=== PATIENT | female | born 1965 | race Caucasian/White ===

== ENCOUNTER 2016-08-03 13:44 | Emergency (ER) | payer BC ==
[2016-08-03 14:57] VITALS: BP 155/92
[2016-08-03] MEDS ORDERED: IBUPROFEN 800 MG TABLET PO ONE (15:19)
[2016-08-03] MEDS ORDERED: DIPH/PERTUSS(ACELL)/TETANUS VAC/PF 0.5 ML SYR (>=10YO) IM ONE (15:19)
--- NOTE | 2016-08-03 15:20 | ER Document Report ---
ED Medical Screen (RME) - General Chief Complaint: Laceration Stated Complaint: LACERATION TO RIGHT 4TH DIGIT Time seen by provider: 15:19 Mode of Arrival: Ambulatory Information source: Patient Notes: 50-year-old female flap cut her fourth dorsal ring finger over the PIP joint with broken glass in the garbage today at 2:00. Tetanus is not current. It is throbbing. TRAVEL OUTSIDE OF THE [place] IN LAST 30 DAYS: No Physical Exam - Vital signs Vitals: Temp Pulse Resp BP Pulse Ox 98.4 F 88 20 155/92 H 98 08/03/16 14:55 08/03/16 14:55 08/03/16 14:55 08/03/16 14:55 08/03/16 14:55 Course - Vital Signs Vital signs: Temp Pulse Resp BP Pulse Ox 98.4 F 88 20 155/92 H 98 08/03/16 14:55 08/03/16 14:55 08/03/16 14:55 08/03/16 14:55 08/03/16 14:55
[2016-08-03] MEDS ORDERED: BUPIVACAINE HCL 0.5 % INJ/PF 30 ML SDV INJ ONE (19:16)
[2016-08-03] MEDS ORDERED: AMOXICILLIN TR/POT CLAVULANATE 500-125 MG TAB PO ONE (19:17)
[2016-08-03] MEDS ORDERED: LIDOCAINE 1% INJ-PF (10 MG/ML) 30 ML SDV INJ ONE (19:17)
[2016-08-03] MEDS ORDERED: AMOXICILLIN TRIHYDRATE 500 MG CAPSULE PO ONE (19:17)
--- NOTE | 2016-08-03 19:26 | ER Document Report ---
ED Wound - General Chief Complaint: Laceration Stated Complaint: LACERATION TO RIGHT 4TH DIGIT Time seen by provider: 19:15 Mode of Arrival: Ambulatory Notes: Patient is a 50-year-old female that comes emergency department for chief complaint of laceration to the right ring finger, patient states she was reaching into a trash bag and cut it on glass, injury happened just prior to arrival. Patient denies any other injuries. Patient denies diabetes. Tetanus is not up-to-date within 5 years. TRAVEL OUTSIDE OF THE [place] IN LAST 30 DAYS: No - Related Data Allergies/Adverse Reactions: No Known Allergies Allergy (Unverified 08/03/16 17:10) Past Medical History - General Information source: Patient - Social History Smoking Status: Never Smoker Cigarette use (# per day): No Chew tobacco use (# tins/day): No Frequency of alcohol use: Rare Drug Abuse: None Lives with: Family Family History: Reviewed & Not Pertinent Patient has suicidal ideation: No Patient has homicidal ideation: No - Medical History Medical History: Negative Renal/ Medical History: Denies: Hx Peritoneal Dialysis Surgical Hx: Negative - Immunizations Hx Diphtheria, Pertussis, Tetanus Vaccination: Yes - 08/03/2016 Review of Systems - Review of Systems Constitutional: No symptoms reported EENT: No symptoms reported Cardiovascular: No symptoms reported Respiratory: No symptoms reported Gastrointestinal: No symptoms reported Genitourinary: No symptoms reported Female Genitourinary: No symptoms reported Musculoskeletal: See HPI Skin: See HPI Hematologic/Lymphatic: No symptoms reported Neurological/Psychological: No symptoms reported Physical Exam - Vital signs Vitals: Temp Pulse Resp BP Pulse Ox 98.4 F 88 20 155/92 H 98 08/03/16 14:55 08/03/16 14:55 08/03/16 14:55 08/03/16 14:55 08/03/16 14:55 Interpretation: Normal - General General appearance: Appears well, Alert In distress: None - HEENT Head: Normocephalic, Atraumatic Eyes: Normal Pupils: PERRL - Respiratory Respiratory status: No respiratory distress Chest status: Nontender Breath sounds: Normal Chest palpation: Normal - Cardiovascular Rhythm: Regular Heart sounds: Normal auscultation Murmur: No - Abdominal Inspection: Normal Distension: No distension Bowel sounds: Normal Tenderness: Nontender Organomegaly: No organomegaly - Back Back: Normal, Nontender - Extremities General upper extremity: Other - Right ring finger with a flap including and just past the DIP over the dorsal aspect of the finger. Capillary refill and sensation are intact, range of motion is intact. General lower extremity: Normal inspection, Nontender, Normal color, Normal ROM , Normal temperature, Normal weight bearing. No: Jose F's sign - Neurological Neuro grossly intact: Yes Cognition: Normal Orientation: AAOx4 Couch Coma Scale Eye Opening: Spontaneous Sandeep Coma Scale Verbal: Oriented Couch Coma Scale Motor: Obeys Commands Couch Coma Scale Total: 15 Speech: Normal Motor strength normal: LUE, RUE, LLE, RLE Sensory: Normal - Psychological Associated symptoms: Normal affect, Normal mood - Skin Skin Temperature: Warm Skin Moisture: Dry Skin Color: Normal Course - Re-evaluation Re-evalutation: There is a large flap, full-thickness, difficult to see if there is tendon involvement, there does not appear to be by range of motion exam, there is only possibly a partial involvement. Irrigated thoroughly, dressed, splint placed, patient referred to hand surgery for reevaluation. Patient placed on Augmentin based on dirty injury, length of opening, and location on the finger. - Vital Signs Vital signs: Temp Pulse Resp BP Pulse Ox 98.4 F 88 20 155/92 H 98 08/03/16 14:55 08/03/16 14:55 08/03/16 14:55 08/03/16 14:55 08/03/16 14:55 Procedures - Laceration/Wound Repair right ring finger Wound length (cm): 2.5 Wound's Depth, Shape: Flap Laceration pre-procedure: Sterile PPE donned, Sterile drapes applied, Other - Surgical cleanser Anesthetic type: Other - Lidocaine and bupivacaine used with digital block Volume Anesthetic (mLs): 6 Wound explored: Clean, No foreign body removed Irrigated w/ Saline (mLs): 70 Wound Repaired With: Sutures Suture Size/Type: 5:0, Nylon Number of Sutures: 8 Layer Closure?: No Post-procedure wound care: Sterile dressing applied Post-procedure NV exam normal: Yes Complications: No Discharge - Discharge Clinical Impression: Finger laceration Qualifiers: Encounter type: initial encounter Qualified Code(s): S61.219A - Laceration without foreign body of unspecified finger without damage to nail, initial encounter Condition: Stable Disposition: HOME, SELF-CARE Additional Instructions: No obvious laceration of tendon is seen, but the depth is concerning. Wear the splint, please follow-up with the orthopedic referral closely (call tomorrow to set up appointment), take the Augmentin antibiotic, you can replace the dressing daily and then replaced the splint, you can apply thin film of antibiotic to the area. Clean gently with soap and water, dry carefully. Return immediately for any concerning symptoms including signs of infection such as redness, swelling, discolored drainage, fever, etc. Prescriptions: Amox Tr/Potassium Clavulanate [Augmentin 875-125 Tablet] 1 tab PO BID 7 Days Forms: Return to Work, Elevated Blood Pressure Referrals: NOLBERTO LOFTON DO [ACTIVE STAFF] - Follow up in 3-5 days
[2016-08-03] MEDS ORDERED: HYDROCODONE/ACETAMINOPHEN 5-325 MG 6 TAB/DSPK PO PRN (20:42)
== END 2016-08-03 21:13 | disposition home or self-care (01) ==
LOC: ER 13:44
PROC: 0HQFXZZ Repair Right Hand Skin, External Approach (ICD-10-PCS; principal; 2016-08-03)
DX: S61.214A Laceration without foreign body of right ring finger without damage to nail, initial encounter (principal); W25.XXXA Contact with sharp glass, initial encounter; Z23 Encounter for immunization
CPT/HCPCS: 99282; 90471; 90715; 12001; J3490